=== PATIENT | female | born 1950 | race Caucasian/White ===

== ENCOUNTER 2016-08-25 09:52 | Outpatient (CLI) | payer BC | END 2016-08-25 09:53 | LOC: LABRHC 09:52 | PROVIDERS: ATTEND Physician Assistant | DX: N30.00 Acute cystitis without hematuria (principal) | CPT/HCPCS: 87088 ==

== ENCOUNTER 2016-12-23 15:35 | Emergency (ER) | payer SELFPAY ==
--- NOTE | 2016-12-23 16:12 | ED Physician Documentation ---
General Adult - HISTORIAN Historian: patient - HPI Stated Complaint: back pain, R wrist pain Chief Complaint: General Adult Onset: hours Timing: still present Severity: moderate Further Comments: yes (Pt is a 66 yo female who slipped in her kitchen and landed on her tailbone and her R wrist. Pt has coccyx pain and R wrist pain. No swelling seen.) - ROS CONST: no problems EYES/ENT: none CVS/RESP: none GI/: none MS/SKIN/LYMPH: other (tailbone pain, R wrist pain) - PAST HX Past History: other (hx cancer) Surgeries/Procedures: other (orthopedic) Allergies/Adverse Reactions: Allergies Allergy/AdvReac Type Severity Reaction Status Date / Time adhesive tape Allergy Rash Verified 12/23/16 16:53 codeine Allergy Rash Verified 12/23/16 16:53 sulfisoxazole Allergy Rash Verified 12/23/16 16:53 [From Gantrisin] sulfisoxazole acetyl Allergy Rash Verified 12/23/16 16:53 [From Gantrisin] - SOCIAL HX Smoking History: non-smoker - FAMILY HX Family History: No - REVIEWED ASSESSMENTS Nursing Assessment Reviewed: Yes Vitals Reviewed: Yes Progress - Progress Progress: X-ray Sacrum & Coccyx: 1. no acute osseous abnormality. 2. Probable L5 pars defect with associated anterolisthesis. X-ray R wrist: No acute osseous abnormality. Toradol 30 mg IM in ER Cock-up splint NSAIDS General Adult Physical Exam - PHYSICAL EXAM GENERAL APPEARANCE: mild distress EENT: eye inspection normal NECK: normal inspection, supple RESPIRATORY: no resp distress CVS: reg rate & rhythm BACK: normal inspection, no CVA tenderness SKIN: warm/dry, normal color EXTREMITIES: other (R wrist tenderness, FROM, no swelling seen) NEURO: oriented X3, motor nml, sensation nml, mood/affect nml Discharge Clincal Impression: R wrist strain Low back pain Qualifiers: Chronicity: acute Back pain laterality: unspecified Sciatica presence: without sciatica Qualified Code(s): M54.5 - Low back pain Fall Qualifiers: Encounter type: initial encounter Qualified Code(s): W19.XXXA - Unspecified fall, initial encounter Referrals: Jarocho Conde MD [Primary Care Provider] - Condition: Good Disposition: 01 HOME, SELF-CARE Decision to Admit: NO Decision Time: 17:22
[2016-12-23] MEDS ORDERED: KETOROLAC TROMETHAMINE 30 MG/1ML VIAL IM ONE (16:30)
[2016-12-23 17:40] VITALS: BP 156/81
--- NOTE | 2016-12-24 05:10 | Diagnostic Imaging Report ---
CLARISA PIRES [facility] [address] [facility] [address] [place] [address]. [address] Report Submission Date: December 23, 2016 5:18:29 PM CDT Patient Study Name: WENDY HUERTA Date: December 23, 2016 4:59:12 PM CDT Modality Type: CR Gender: F Description: UPPER EXTREMITY : 54 Institution: [facility] Physician: CLARISA PIRES Right wrist, 3 views. History: Wrist pain after fall Findings: The osseous structures are intact without acute fracture. There is mild degenerative changes at the 1st carpometacarpal joint space There is no soft tissue swelling. Impression: 1. No acute osseous abnormality. Electronically signed on December 23, 2016 5:18:29 PM CDT by: Roc SEBASTIAN
--- NOTE | 2016-12-24 05:10 | Diagnostic Imaging Report ---
CLARISA PIRES [facility] [address] [facility] [address] [place] [address]. [id number] Report Submission Date: December 23, 2016 5:16:27 PM CDT Patient Study Name: WENDY HUERTA Date: December 23, 2016 4:45:24 PM CDT Modality Type: CR Gender: F Description: SPINE : 54 Institution: [facility] Physician: CLARISA PIRES Sacrum and coccyx. History: Pain after fall. Findings: The osseous structures are intact without fracture. The sacroiliac joints are normal. Sacral coccyx are intact. There is grade I/2 anterolisthesis of L5 on S1 with probable pars defect noted Impression: 1. no acute osseous abnormality. 2. Probable L5 pars defect with associated anterolisthesis Electronically signed on December 23, 2016 5:16:27 PM CDT by: Roc Frazier [facility]ITAL[facility]
== END 2016-12-23 17:30 | disposition home or self-care (01) ==
LOC: ED 15:35
DX: S63.501A Unspecified sprain of right wrist, initial encounter (principal); M54.5 Low back pain; W19.XXXA Unspecified fall, initial encounter; Y93.9 Activity, unspecified; Y99.9 Unspecified external cause status
CPT/HCPCS: 72220; 73110; J1885; 96372; 99283; L3908

== ENCOUNTER 2017-06-22 07:50 | Outpatient (CLI) | payer BC ==
[2017-06-22 08:03] LABS: BASOPHILS % 0.6 (0.0-1.5); EOSINOPHILS % 5.7 % (0.0-6.8); MONOCYTES % 4.8 % (0.0-11.0); NEUTROPHILS # 2.2 # k/uL (1.4-7.7)
[2017-06-22 08:36] LABS: eGFR (African) > 60; eGFR (Non-African) > 60
== END 2017-06-22 07:52 ==
LOC: LAB 07:50
PROVIDERS: ATTEND Family Medicine
DX: Z00.00 Encounter for general adult medical examination without abnormal findings (principal)
CPT/HCPCS: 36415; 80053; 80061; 85025

== ENCOUNTER 2017-11-23 10:26 | Outpatient (CLI) | payer MEDICARE | END 2017-11-23 10:28 | LOC: LABRHC 10:26 | PROVIDERS: ATTEND Physician Assistant | DX: R30.0 Dysuria (principal) | CPT/HCPCS: 87086 ==

== ENCOUNTER 2018-10-08 09:11 | Emergency (ER) | payer MEDICARE, OTHER ==
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
[2018-10-08] MEDS ORDERED: ORPHENADRINE CITRATE 60 MG/2 ML ML IM ONE (10:48)
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
[2018-10-08 11:31] VITALS: BP 143/76
== END 2018-10-08 11:15 | disposition home or self-care (01) ==
LOC: ED 09:11
DX: S70.12XA Contusion of left thigh, initial encounter (principal); M54.2 Cervicalgia; V43.52XA Car driver injured in collision with other type car in traffic accident, initial encounter; Y93.89 Activity, other specified; Y92.410 Unspecified street and highway as the place of occurrence of the external cause
CPT/HCPCS: 72040; 72170; 73552; 96372; 99284; 99285; J2360

== ENCOUNTER 2018-10-12 08:01 | Outpatient (CLI) | payer MEDICARE, OTHER ==
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
== END 2018-10-12 08:03 ==
LOC: RAD 08:01
PROVIDERS: ATTEND Family Medicine
DX: R51 Headache (principal)
CPT/HCPCS: 70450